=== PATIENT | female | born 1995 | race Caucasian/White ===

== ENCOUNTER 2017-11-15 00:04 | Emergency (ER) | payer OTHER, MEDICAID ==
[~2017-11-15] VITALS: Ht 157.5 cm; Wt 56.7 kg
[2017-11-15 00:11] VITALS: BP 113/69
[2017-11-15] MEDS ORDERED: KEFLEX500 M1 PO (00:22)
== END 2017-11-15 00:30 | disposition home or self-care (01) ==
LOC: M.ERS 00:04
DX: P92.5 Neonatal difficulty in feeding at breast (principal); N64.4 Mastodynia

== ENCOUNTER 2017-11-26 04:41 | Emergency (ER) | payer OTHER, MEDICAID ==
[~2017-11-26] VITALS: Ht 157.5 cm; Wt 59.0 kg
[~2017-11-26 04:41] MED LIST: KEFLEX500 M1 PO
[2017-11-26 04:45] VITALS: BP 128/86
[2017-11-26] MEDS ORDERED: Magic Mouthwash PO (05:09)
[2017-11-26] MEDS ORDERED: ACETAMINOPHEN-1 EAC1 PO (05:09)
[2017-11-26] MEDS ORDERED: IBUPROFEN 800800 MG PO (05:09)
== END 2017-11-26 05:15 | disposition home or self-care (01) ==
LOC: M.ERS 04:41
DX: K08.89 Other specified disorders of teeth and supporting structures (principal)

== ENCOUNTER 2018-09-08 21:41 | Emergency (ER) | payer OTHER ==
[~2018-09-08] VITALS: Ht 157.5 cm; Wt 54.4 kg
[~2018-09-08 21:41] MED LIST changes: +ACETAMINOPHEN-1 EAC1 PO; +IBUPROFEN 800800 MG PO; +Magic Mouthwash PO
[2018-09-08 22:12] LABS: URINE BILIRUBIN NEGATIVE (Negative); URINE BLOOD 1+ (Negative); URINE CLARITY CLEAR; URINE COLOR YELLOW; URINE GLUCOSE-RANDOM NEGATIVE (Negative); URINE KETONES TRACE (Negative); URINE LEUKOCYTES-REFLEX NEGATIVE (Negative); URINE NITRITE-REFLEX NEGATIVE (Negative); URINE PROTEIN NEGATIVE (Negative); URINE SPECIFIC GRAVITY >= 1.030 (1.005-1.030); URINE UROBILINOGEN 0.2 E.U./dl (0.2-1.0)
[2018-09-08 22:22] LABS: ABSOLUTE LYMPHOCYTES 2.7 thou/uL (0.8-5.3); ABSOLUTE MONOCYTES 0.6 thou/uL (0.0-1.2); ABSOLUTE NEUTROPHILS 3.7 thou/uL (1.6-8.1); BASOPHILS 0.6 %; EOSINOPHILS 0.6 %; HEMATOCRIT 36.3 % (37.0-47.0); HEMOGLOBIN 12.3 gm/dL (12.0-15.0); LYMPHOCYTES 38.3 %; MCH 30.1 pg (26.0-34.0); MCHC 33.9 g/dL (28.0-37.0); MONOCYTES 7.9 %; NUCLEATED RBCS 0 /100WBC; PLATELET COUNT* 237 thou/uL (150-400); POLYS 52.6 %; RBC 4.08 mil/uL (4.20-5.00); RDW-CV 12.8 % (10.5-14.5); WBC 7.1 thou/uL (4.0-11.0)
[2018-09-08 22:25] LABS: SQUAMOUS >10 Many /LPF (0-3)
[2018-09-08 22:26] LABS: CASTS None Seen /LPF (None Seen); CRYSTALS None Seen /LPF (None Seen); MUCUS 4-6 Moderate strn/LPF (None Seen)
[2018-09-08 22:27] LABS: URINE RBC 0-2 Rare /HPF (0-2); URINE WBC-REFLEX 0-5 Rare /HPF (0-5)
[2018-09-08 22:34] LABS: ALBUMIN 3.5 g/dL (3.4-5.0); CALCIUM 8.5 mg/dL (8.5-10.1); CREATININE 0.7 mg/dL (0.6-1.3); TOTAL BILIRUBIN 0.2 mg/dL (<0.1-1.0); TOTAL PROTEIN 7.1 g/dL (6.4-8.2)
[2018-09-08] MEDS ORDERED: ULTRAM 50MG TAB50 MG PO (22:40)
[2018-09-08] MEDS ORDERED: ZOFRAN4 MG PO (22:40)
[2018-09-08 22:51] VITALS: BP 106/62
== END 2018-09-08 22:51 | disposition home or self-care (01) ==
LOC: M.ERS 21:41
PROVIDERS: Nurse Practitioner
DX: R10.31 Right lower quadrant pain (principal); Z98.890 Other specified postprocedural states

== ENCOUNTER 2021-01-02 20:29 | Emergency (ER) | payer OTHER, MEDICAID ==
[~2021-01-02] VITALS: Ht 157.5 cm; Wt 54.4 kg
[~2021-01-02 20:29] MED LIST changes: +ULTRAM 50MG TAB50 MG PO; +ZOFRAN4 MG PO
[2021-01-02] MEDS ORDERED: MOBIC7.5 MG PO (21:20)
[2021-01-02 21:30] VITALS: BP 127/80
== END 2021-01-02 21:31 | disposition home or self-care (01) ==
LOC: M.ERS 20:29
DX: M25.531 Pain in right wrist (principal); Z98.890 Other specified postprocedural states; W17.89XA Other fall from one level to another, initial encounter; Y93.89 Activity, other specified; Y92.89 Other specified places as the place of occurrence of the external cause; Y99.8 Other external cause status